=== PATIENT | female | born 1970 | race Caucasian/White ===

== ENCOUNTER 2018-11-15 14:24 | Emergency (ER) | payer MEDICAID ==
[~2018-11-15] VITALS: Ht 157.5 cm; Wt 64.0 kg
[2018-11-15 16:10] LABS: CHLORIDE 109 mEq/L (98-107)
[2018-11-15 16:13] LABS: BASOPHILS % 0.7 % (0.0-2.0); EOSINOPHILS % 1.1 % (0.0-5.0); HEMATOCRIT. 41.6 % (36.0-48.0); HEMOGLOBIN. 14.1 g/dL (12.0-16.0); LYMPHOCYTES % 15.9 % (20.0-50.0); MEAN CORPUSCULAR HEMOGLOBIN 30.5 pg (28.0-32.0); MEAN PLATELET VOLUME 8.5 fl (7.4-10.4); MONOCYTES % 4.7 % (2.0-8.0); NEUTROPHILS % 77.6 % (40.0-76.0); PLATELET 223 x1000/uL (130-400); RED BLOOD CELL COUNT 4.62 mill/uL (4.2-5.4)
[2018-11-15 16:56] VITALS: BP 139/83
== END 2018-11-15 16:57 | disposition home or self-care (01) ==
LOC: ER 14:24
DX: R00.2 Palpitations (principal); M32.9 Systemic lupus erythematosus, unspecified
CPT/HCPCS: 36415; 71045; 83880; 84484; 93005; 99284

== ENCOUNTER → 2019-07-13 | Outpatient (CLI) | payer MEDICAID, OTHER ==
[~2019-07-13] MED LIST: BACL-141 PO; HYDR200T35 PO; LOSA25TA26 PO; OMEP20CA14 PO; SUCR1TAB PO
== END | disposition home or self-care (01) ==
LOC: LAB 09:54
PROVIDERS: ATTEND Obstetrics & Gynecology
DX: Z01.818 Encounter for other preprocedural examination (principal); Z11.59 Encounter for screening for other viral diseases
CPT/HCPCS: U0003-CS

== ENCOUNTER 2019-07-17 06:29 | Day surgery (SDC) | payer MEDICAID ==
[~2019-07-17] VITALS: Ht 149.9 cm; Wt 63.5 kg
[2019-07-17] MEDS ORDERED: VASOPRESSIN 20 UNIT/ML 1ML ONE (06:38)
[2019-07-17] MEDS ORDERED: BUPIVACAINE HCL/PF 0.5% (5MG/ML) 10ML ONE (06:39)
[2019-07-17] MEDS ORDERED: BACITRACIN 50,000 UNITS/VIAL ONE (06:39)
[2019-07-17] MEDS ORDERED: SKIN ADHESIVE 0.7 GM EA TOP ONE ×3 (06:40→11:56)
[2019-07-17 07:05] LABS: CLARITY URINE CLEAR (CLEAR); COLOR URINE YELLOW (YELLOW); KETONES URINE NEGATIVE (NEGATIVE); LEUKOCYTE ESTERASE URINE NEGATIVE (NEGATIVE); NITRITE URINE NEGATIVE (NEGATIVE); OCCULT BLOOD URINE 3+ (NEGATIVE); PROTEIN URINE 2+ (NEGATIVE); SPECIFIC GRAVITY URINE 1.012 (1.005-1.030); UROBILINOGEN URINE 0.2 E.U./dL (0.2-1.0)
[2019-07-17 07:20] LABS: UCG SCREEN NEGATIVE
[2019-07-17] MEDS ORDERED: KETOROLAC 30MG/ML VIAL ONE (08:19)
[2019-07-17] MEDS ORDERED: PROPOFOL 200MG/20ML VIAL IV ONE (08:19)
[2019-07-17] MEDS ORDERED: SODIUM CHLORIDE 0.9% 10ML VIAL ONE ×2 (08:19→09:47)
[2019-07-17] MEDS ORDERED: SUCCINYLCHOLINE CHLORIDE 200MG/10ML IV ONE (08:19)
[2019-07-17] MEDS ORDERED: CEFAZOLIN SODIUM 1000MG/VIAL ONE (08:19)
[2019-07-17] MEDS ORDERED: LIDOCAINE HCL/PF 1% 10 MG/ML 5ML VIAL ONE (08:19)
[2019-07-17] MEDS ORDERED: ROCURONIUM BROMIDE 10MG/ML VIAL 5ML IV ONE (08:21)
[2019-07-17] MEDS ORDERED: MIDAZOLAM HCL 2 MG/2 ML VIAL ONE (08:25)
[2019-07-17] MEDS ORDERED: FENTANYL CITRATE/PF 50MCG/ML 2ML VIAL ONE ×2 (08:25→11:45)
[2019-07-17] MEDS ORDERED: EPHEDRINE SULFATE 50MG/ML VIAL ONE (08:39)
[2019-07-17] MEDS ORDERED: DEXAMETHASONE 4MG/ML 1ML VIAL ONE (08:49)
[2019-07-17] MEDS ORDERED: ONDANSETRON HCL 4MG/2ML INJ ONE (08:49)
[2019-07-17] MEDS ORDERED: HYDRALAZINE 20MG/ML VIAL ONE (09:47)
[2019-07-17] MEDS ORDERED: NEOSTIGMINE METHYLSULFATE 1MG/ML 10 ML VIAL ONE (11:53)
[2019-07-17] MEDS ORDERED: GLYCOPYRROLATE 0.2 MG/ML 2ML VIAL ONE (11:53)
[2019-07-17] MEDS ORDERED: ALBUTEROL (0.083%) 2.5MG/3ML NEB HHN NR ×2 (12:00→16:15)
[2019-07-17] MEDS ORDERED: ONDANSETRON HCL 4MG/2ML INJ IV PRN (12:30)
[2019-07-17] MEDS ORDERED: HYDROCODONE/ACETAMINOPHEN 5/325MG TABLET PO PRN (12:30)
[2019-07-17] MEDS ORDERED: MORPHINE SULFATE 2 MG/ML CPJ (NOT FOR IM USE) IV PRN (12:30)
[2019-07-17] MEDS ORDERED: LACTATED RINGERS 1,000 ML IV SCH (15:30)
[2019-07-17 16:02] VITALS: BP 118/56
[2019-07-17] MEDS ORDERED: ALBUTEROL (0.083%) 2.5MG/3ML NEB ONE (16:10)
[2019-07-17] MEDS ORDERED: FAMOTIDINE 20MG/2ML VIAL IV NR (16:15)
== END 2019-07-17 17:10 | disposition home or self-care (01) ==
LOC: OR 06:29
PROVIDERS: ATTEND Obstetrics & Gynecology
DX: N94.6 Dysmenorrhea, unspecified (principal); N93.8 Other specified abnormal uterine and vaginal bleeding; D25.9 Leiomyoma of uterus, unspecified; N72 Inflammatory disease of cervix uteri; I10 Essential (primary) hypertension; Z79.899 Other long term (current) drug therapy; Z98.890 Other specified postprocedural states
CPT/HCPCS: 36415; 58552; 71045; 81003; 81025; 86850; 86900; 86901; 88307; J0330; J0360; J0690; J1100; J2250; J2270; J2405; J2704; J2710; J3010; J3490; S2900; J1885

== ENCOUNTER 2022-08-15 16:37 | Emergency (ER) | payer MEDICAID, OTHER ==
[~2022-08-15] VITALS: Ht 149.9 cm; Wt 72.0 kg
[2022-08-15 16:48] VITALS: O2SAT 97
[2022-08-15 17:08] LABS: CLARITY URINE CLEAR (CLEAR); COLOR URINE YELLOW (YELLOW); KETONES URINE NEGATIVE (NEGATIVE); LEUKOCYTE ESTERASE URINE TRACE (NEGATIVE); NITRITE URINE NEGATIVE (NEGATIVE); OCCULT BLOOD URINE 1+ (NEGATIVE); PROTEIN URINE 2+ (NEGATIVE); SPECIFIC GRAVITY URINE 1.014 (1.005-1.030); UROBILINOGEN URINE 0.2 E.U./dL (0.2-1.0)
[2022-08-15] MEDS ORDERED: HYDROCODONE/ACETAMINOPHEN 5/325MG TABLET PO ONE (18:45)
[2022-08-15] MEDS ORDERED: CEPH500C2 MT (18:52)
[2022-08-15] MEDS ORDERED: T3 PO (18:52)
[2022-08-15 19:27] VITALS: BP 145/78; PULSE 74; RESP 18; TEMP 97.8
== END 2022-08-15 19:29 | disposition home or self-care (01) ==
LOC: ER 16:37
DX: M54.50 Low back pain, unspecified (principal); N39.0 Urinary tract infection, site not specified; Z68.32 Body mass index [BMI] 32.0-32.9, adult; Z79.899 Other long term (current) drug therapy
CPT/HCPCS: 81003; 99283